=== PATIENT | male | born 1950 | race Caucasian/White ===

== ENCOUNTER 2016-04-19 07:29 | Outpatient (CLI) | payer MEDICARE, OTHER | END 2016-04-19 07:30 | disposition home or self-care (01) | DX: I10 Essential (primary) hypertension (principal) ==

== ENCOUNTER 2019-11-27 20:07 | Outpatient (CLI) | payer MEDICARE, OTHER | END 2019-11-27 20:08 | disposition home or self-care (01) | LOC: COV 20:07 | PROVIDERS: ATTEND Surgery | DX: Z01.812 Encounter for preprocedural laboratory examination (principal); K40.90 Unilateral inguinal hernia, without obstruction or gangrene, not specified as recurrent; Z20.828 Contact with and (suspected) exposure to other viral communicable diseases ==

== ENCOUNTER 2019-12-01 08:52 | Day surgery (SDC) | payer MEDICARE, OTHER ==
[2019-12-01] MEDS ORDERED: CEFAZOLIN SODIUM IN 0.9 % NACL 2 GM/100 ML BAG IV ONE (08:53)
[2019-12-01] MEDS ORDERED: LACTATED RINGERS 1,000 ML IV ONE ×2 (09:00→11:25)
[2019-12-01] MEDS ORDERED: MORPHINE 2 MG/ML CARPUJECT IVP PRN (09:27)
[2019-12-01] MEDS ORDERED: ePHEDrine 50 MG/ML VIAL IVP PRN (09:27)
[2019-12-01] MEDS ORDERED: fentaNYL 100 MCG/2 ML VIAL IVP PRN (09:27)
[2019-12-01] MEDS ORDERED: HYDROmorphone 0.5 MG/0.5 ML SYRINGE IVP PRN (09:27)
[2019-12-01] MEDS ORDERED: NALOXONE 0.4 MG/ML VIAL IVP PRN (09:27)
[2019-12-01] MEDS ORDERED: ONDANSETRON 4 MG/2 ML VIAL IVP PRN (09:27)
[2019-12-01] MEDS ORDERED: ATROPINE ABBOJECT 1 MG/10 ML SYRINGE IVP PRN (09:27)
[2019-12-01] MEDS ORDERED: METOCLOPRAMIDE 10 MG/2 ML VIAL IVP PRN (09:27)
--- NOTE | 2019-12-01 09:27 | ANESTHESIA ---
Pre-Anesthesia VS, & Labs - Diagnosis left inguinal hernia - Procedure open left inguinal hernia repair Vital Signs: Temp Pulse Resp BP Pulse Ox 36.1 C L 74 15 149/95 H 97 12/01/19 09:00 12/01/19 09:00 12/01/19 09:00 12/01/19 09:00 12/01/19 09:00 Height: 6 ft 6 in Weight (kg): 95.2 kg Body Mass Index: 24.2 BMI Classification: Healthy weight - NPO >8 hours - Lab Results Current Lab Results: Laboratory Tests 12/01/19 09:15: POC Whole Bld Glucose 116 H Home Medications and Allergies Home Medications: Ambulatory Orders Albuterol Sulfate [Proair Hfa Inhaler] 1 - 2 puffs INH Q4H PRN 11/23/19 Fluticasone/Salmeterol [Advair 250-50 Diskus] 1 each IH DAILY 11/23/19 Aspirin [Aspir 81] 81 mg ORAL DAILY 10/16/13 Fluticasone [Flonase] 2 puffs ALEJANDRO DAILY PRN 10/16/13 Losartan [Cozaar] 50 mg ORAL DAILY 10/16/13 hydroCHLOROthiazide [Hydrochlorothiazide] 12.5 mg PO DAILY 10/16/13 Albuterol Sulfate [Proair Hfa Inhaler] 1 - 2 puffs INH Q4H PRN 11/23/19 Fluticasone/Salmeterol [Advair 250-50 Diskus] 1 each IH DAILY 11/23/19 Allergies/Adverse Reactions: Allergies Allergy/AdvReac Type Severity Reaction Status Date / Time No Known Drug Allergies Allergy Verified 10/16/13 08:29 Anes History & Medical History - Anesthetic History Anesthesia Complications: reports: Other-see comment (stated in 1970 on finger surgery, "heart stopped when they numbed me up". Has had colonoscopies with no problem as well as visits to dentist with local infiltration) Family history of Anesthesia Complications: Denies Family history of Malignant Hyperthermia: Denies - Medical History Cardiovascular: reports: Hypertension Pulmonary: reports: Asthma Gastrointestinal: reports: GERD Urinary: reports: None Musculoskeletal: reports: Other Endocrine/Autoimmune: reports: Type 2 diabetes (pre diabetic) Skin: reports: None - Surgical History General: Appendectomy Eyes Ears Nose Throat (EENT): Tonsil/Adenoidectomy Orthopedic: ACL reconstruction, Other Exam General: Alert, Oriented x3, Cooperative, No acute distress Dental: WNL Mouth Openin Fingerbreadth Neck Mobility: Normal Mallampati classification: II Respiratory: Lungs clear Cardiovascular: Regular rate, Normal S1, Normal S2, No murmurs Plan Anesthesia Type: General (back up), MAC Consent for Procedure(s) Verified and Reviewed: Yes Code Status: Attempt Resuscitation ASA classification: 2-Mild systemic disease Is this case an emergency?: No
[2019-12-01] MEDS ORDERED: LACTATED RINGERS 1,000 ML IV SCH (10:00)
[2019-12-01] MEDS: LIDOCAINE 1% 50 ML MDV ONE ×2 (10:21→11:17)
[2019-12-01] MEDS: BUPIVACAINE 0.25% PF 30 ML VIAL ONE ×2 (10:22→11:17)
--- NOTE | 2019-12-01 11:31 | OPERATIVE REPORT ---
Operative Report - General Procedure Date: 12/01/19 Planned Procedure: left inguinal hernia repair Pre-Op Diagnosis: left inguinal hernia Procedure Performed: open left inguinal hernia repair - Procedure Note Primary Surgeon: kandy meza Anesthesia Technique: Local, MAC Estimated Blood Loss (mL): 0 Findings: slider type with bladder Complications: none
[2019-12-01] MEDS ORDERED: HYDROcod/ACETAM 5/325 MG TABLET PO PRN (11:34)
[2019-12-01 12:01] VITALS: BP 151/98
--- NOTE | 2019-12-01 13:00 | ANESTHESIA POST OP EVALUATION ---
Anesthesia Post Eval - Post Anesthesia Eval Vitals: Last Vital Signs Temp 36.1 C L 12/01/19 11:25 Pulse 70 12/01/19 12:01 Resp 21 12/01/19 12:01 BP 151/98 H 12/01/19 12:01 Pulse Ox 96 12/01/19 12:01 CV Function Including HR & BP: positive: Stable Pain Control: positive: Satisfactory Nausea & Vomiting: positive: Negative Mental Status: positive: Baseline Respiratory Status: Airway Patent Hydration Status: Satisfactory Anesthesia Complications: positive: None
--- NOTE | 2019-12-01 21:14 | OPERATIVE REPORT ---
DATE OF SERVICE: 12/01/2019 Physician: Valentin Mascorro MD PREOPERATIVE DIAGNOSIS: Left inguinal hernia. POSTOPERATIVE DIAGNOSIS: Left inguinal hernia, large indirect slider type with bladder. PROCEDURE: Open left inguinal hernia repair with mesh, Zackery. SURGEON: Valentin Mascorro MD OCCASIONAL BABYSITTER: None. ANESTHESIA: Monitored anesthesia care, IV sedation, local anesthesia. COMPLICATIONS: None. SPECIMEN: Indirect hernia sac and small portion herniated preperitoneal adipose tissue removed; however, not sent for pathology. ESTIMATED BLOOD LOSS: None. COMPLICATIONS: None. DRAINS: None. FINDINGS: A slightly aberrant nerve anatomy with the ilioinguinal nerve running in a medial direction. A large indirect slider type hernia with bladder. Prosthetic is a polypropylene mesh. INDICATIONS FOR PROCEDURE: Patient is a 69-year-old healthy, active gentleman with a large symptomatic left inguinal hernia. He presents for open repair with mesh. Risks discussed, alternatives discussed, all questions answered, and consent obtained. DETAILS OF PROCEDURE: Patient was properly identified and brought to the operating room and placed in supine position. Monitored anesthesia care was given. He was prepped and draped in a sterile fashion and given preoperative antibiotics. Local anesthetic was given throughout the procedure. A 5 cm incision was made in the direction of Amrita's lines. Dissection proceeded sharply or with cutting current. The superficial epigastric vein was identified, clamped, divided, and tied with 3-0 Vicryl. Dissection proceeded down to the aponeurosis. This was opened in the direction of its fibers, extending to the external ring. The cord structures were mobilized and brought up. His ilioinguinal nerve ran in the medial direction. It was sharply mobilized to allow for repair without tension on the nerve. Patient had a large slider indirect type hernia. The hernia sac was opened and what was most consistent with the bladder was carefully and sharply or bluntly mobilized from within the hernia sac. The hernia sac was then closed from the inside with a 2- 0 silk pursestring suture. Redundant hernia sac was removed. A small portion of herniated preperitoneal adipose tissue was clamped, divided, removed and tied with 2-0 Vicryl. The shelving border of Poupart's ligament, pubic tubercle, and medially internal oblique was now developed. The iliohypogastric nerve lay cephalad or lateral from the incision. The genitofemoral nerve was also identified. A polypropylene mesh was cut to size and with tails. The mesh was secured with multiple interrupted Ti-Cron sutures. Sutures were placed close to the pubic tubercle along the shelving border of Poupart's ligament and medially along the musculature fascia of the internal oblique. The ilioinguinal nerve was carefully reflected back with the cord structures and mesh lay under the nerve. The medial tail of the mesh was secured to the shelving border of Poupart's ligament with 3 interrupted 0 Ti-Cron sutures recreating the internal ring of appropriate size. The aponeurosis was closed with a running 2-0 Vicryl suture. Nabor's was closed with interrupted 3-0 Vicryl suture. Skin was closed with a running 4-0 Monocryl subcuticular suture. Dressing was applied. He tolerated the procedure very well. TD: 12/01/2019 14:41 MTDD
== END 2019-12-01 08:53 | disposition home or self-care (01) ==
LOC: SDS 08:52
PROVIDERS: ATTEND Surgery
DX: K40.90 Unilateral inguinal hernia, without obstruction or gangrene, not specified as recurrent (principal); E11.9 Type 2 diabetes mellitus without complications; I10 Essential (primary) hypertension
CPT/HCPCS: 49525; C1781; J0690; J7120

== ENCOUNTER 2020-03-08 10:05 | Outpatient (CLI) | payer MEDICARE, OTHER | END 2020-03-08 10:06 | disposition home or self-care (01) | LOC: COV 10:05 | PROVIDERS: ATTEND Family Medicine | DX: U07.1 COVID-19 (principal) ==

== ENCOUNTER 2022-12-26 07:01 | Outpatient (CLI) | payer MEDICARE, OTHER ==
--- NOTE | 2022-12-26 13:38 | Ultrasound Report ---
PROCEDURE: Abdomen Complete INDICATIONS: LEFT LOWER QUADRANT PAIN TECHNIQUE: Real-time scanning was performed of the abdominal and retroperitoneal organs, with image documentatio n. COMPARISON: None. FINDINGS: Liver: The liver is normal in size and diffusely increased in echogenicity. No focal hepatic lesion is seen. Gallbladder: The gallbladder appears normal without gallstones or gallbladder wall thickening. There is no pericholecystic fluid. Sonographic Rainey sign is negative. Biliary ducts: Intrahepatic bile ducts are non-dilated. Extrahepatic bile duct caliber measures 5 m m. Normal is 6-7 mm or less in diameter, or 10 mm or less post-cholecystectomy. Pancreas: Visualized portions of the pancreas are sonographically normal. Spleen: Spleen is normal in size and homogeneous in echotexture. Kidneys: Kidneys are normal in size and echotexture. Right kidney measures 10.8 cm long; left kidne y measures 12.1 cm long. No hydronephrosis or nephrolithiasis. No solid masses. No complex renal cy stic lesions which require follow-up. Multiple simple parapelvic cysts are seen bilaterally. Aorta: Visualized aorta is normal in caliber at less than 3 cm. Iliacs: Proximal common iliac arteries are normal in caliber at less than 2.5 cm. IVC: Intrahepatic inferior vena cava is patent. Miscellaneous: No free abdominal fluid. IMPRESSION: 1.Diffusely increased hepatic echogenicity is nonspecific, but most commonly encountered in the setti ng of hepatic steatosis. However, other causes of hepatocellular disease are not excluded. Recommend clinical correlation. 2.Simple renal cysts. No hydronephrosis. Reviewed by: Kulwinder Fox MD on 12/26/2022 1:36 PM PST Approved by: Kulwinder Fox MD on 12/26/2022 1:36 PM PST Station ID: [id number]
== END 2022-12-26 07:02 | disposition home or self-care (01) ==
LOC: DI 07:01
PROVIDERS: ATTEND Internal Medicine
DX: R10.32 Left lower quadrant pain (principal); N28.1 Cyst of kidney, acquired

== ENCOUNTER 2023-08-23 12:16 | Emergency (ER) | payer MEDICARE, OTHER ==
[2023-08-23] MEDS: LIDOCAINE 1% 2 ML VIAL SUBQ STA (14:13)
[2023-08-23] MEDS: TETANUS/DIPHTHERIA/PERTUSSIS 0.5 ML SYRINGE IM ONE (14:29)
--- NOTE | 2023-08-23 14:31 | ED Physician Documentation ---
PD HPI UPPER EXT INJURY - Stated complaint Stated Complaint: LT FINGER LAC - Chief complaint Chief Complaint: Laceration - History obtained from History obtained from: Patient - History of Present Illness Location: Left, Finger (index) Type of injury: Laceration Where injury occurred: Home Timing - onset: Today Timing - duration: Minutes Timing - details: Abrupt onset, Still present Improved by: Rest, Immobilization Worsened by: Moving, Palpating Associated symptoms: No: Weakness, Numbness, Tingling Contributing factors: No: Anticoagulated, Prior ortho surgery Similar symptoms before: Diagnosis (laceration) Recently seen: Not recently seen - Additonal information Additional information: Previously well 73-year-old Eddie [place] was attempting to remove some baling wire from a mower with a sharp knife when he lacerated his left index finger. He has a large flap laceration he is not up-to-date on his tetanus and he is here for suturing. Review of Systems Constitutional: denies: Fever Respiratory: denies: Cough GI: denies: Vomiting Skin: reports: Laceration (s) PD PAST MEDICAL HISTORY - Past Medical History Past Medical History: Yes Cardiovascular: Hypertension Respiratory: Asthma Endocrine/Autoimmune: Type 2 diabetes GI: GERD : None HEENT: Chronic vision loss Psych: Claustrophobia Musculoskeletal: Other Derm: None - Past Surgical History Past Surgical History: Yes General: Appendectomy Ortho: ACL reconstruction, Other HEENT: Tonsil/Adenoidectomy - Present Medications Home Medications: Ambulatory Orders Medication Instructions Recorded Confirmed Aspirin [Aspir 81] 81 mg ORAL DAILY 10/16/13 11/23/19 Fluticasone [Flonase] 2 puffs ALEJANDRO DAILY PRN 10/16/13 11/23/19 Losartan [Cozaar] 50 mg ORAL DAILY 10/16/13 11/23/19 hydroCHLOROthiazide 12.5 mg PO DAILY 10/16/13 11/23/19 [Hydrochlorothiazide] Albuterol Sulfate [Proair Hfa 1 - 2 puffs INH Q4H PRN 11/23/19 11/23/19 Inhaler] Fluticasone Propion/Salmeterol 1 each IH DAILY 11/23/19 11/23/19 [Advair 250-50 Diskus] Hydrocodone/Acetaminophen 1 each PO Q4HR PRN #30 tablet 12/01/19 [Hydrocodone-Acetamin 5-325 mg] - Allergies Allergies/Adverse Reactions: Allergies Allergy/AdvReac Type Severity Reaction Status Date / Time No Known Drug Allergies Allergy Verified 08/23/23 12:25 - Social History Does the pt smoke?: No Smoking Status: Never smoker Does the pt drink ETOH?: No Does the pt have substance abuse?: No - Immunizations Immunizations are current?: No - POLST Patient has POLST: No PD ED PE NORMAL - Vitals Vital signs reviewed: Yes (hypertensive mild) - General General: Alert and oriented X 3, No acute distress, Well developed/nourished - HEENT HEENT: Atraumatic, PERRL, EOMI - Respiratory Respiratory: No respiratory distress - Derm Derm: Normal color, Warm and dry, No rash - Extremities Extremities: Other (Over the radial surface of the left index finger there is a flap laceration that is approximately 6 cm. 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, No motor deficit, No sensory deficit, Normal speech Eye Opening: Spontaneous Motor: Obeys Commands Verbal: Oriented GCS Score: 15 - Psych Psych: Normal mood, Normal affect Results - Vitals Vitals: Vital Signs - 24 hr 08/23/23 08/23/23 12:23 14:47 Temperature 36.4 C L 36.5 C Heart Rate 73 70 Respiratory 20 18 Rate Blood Pressure 131/76 H 128/72 O2 Saturation 95 98 Oxygen O2 Source Room air Procedures - Laceration (location) left index Length in cm: 6 Wound type: Curved, Irregular, Flap, Into subcut fat, Clean Neurovascular status: Sensory intact, Motor intact, Vascular intact Anesthesia: Lidocaine 1% Wound preparation: Hibiclens, Irrigated copiously NS, Wound explored, To the base Skin layer closure: Nylon, Interrupted, Size #-0 - enter number (4-0) Other: Patient tolerated well, No complications, Neurovascular intact, Dressing applied, Tetanus booster given PD Medical Decision Making - ED course Complexity details: reviewed results, re-evaluated patient, considered differential, d/w patient ED course: 73-year-old male presents to the emergency department with a laceration to his left index finger with a large flap. Clean with a sharp knife. This is cleansed anesthetized and closed with 4-0 interrupted nylon. Departure - Departure Disposition: 01 Home, Self Care Clinical Impression: Laceration of index finger Qualifiers: Encounter type: initial encounter Damage to nail status: without damage Foreign body presence: without foreign body Laterality: left Qualified Code(s): S61.211A - Laceration without foreign body of left index finger without damage to nail, initial encounter Condition: Stable Instructions: ED Laceration Hand Follow-Up: Artie Gerardo MD [Primary Care Provider] - Comments: Eddie, today it looks like you have lacerated your finger we have sewn this up and you will need to have sutures removed in about 10 days. Forms: PCP List Discharge Date/Time: 08/23/23 14:47
[2023-08-23] MEDS: BACITRACIN ZINC OINT 1 PACKET TOP STA (14:42)
[2023-08-23 14:53] VITALS: BP 128/72; O2SAT 98
== END 2023-08-23 14:47 | disposition home or self-care (01) ==
LOC: ED 12:16
DX: S61.211A Laceration without foreign body of left index finger without damage to nail, initial encounter (principal); W26.0XXA Contact with knife, initial encounter; I10 Essential (primary) hypertension; E11.9 Type 2 diabetes mellitus without complications; Z79.82 Long term (current) use of aspirin; Z23 Encounter for immunization
CPT/HCPCS: 12002; 90471; 90715; 99283; A9270